=== PATIENT | female | born 1995 | race Two or more races ===

== ENCOUNTER 2020-12-14 15:42 | Emergency (ER) | payer OTHER ==
[~2020-12-14] VITALS: Ht 172.7 cm; Wt 131.7 kg
[2020-12-14] MEDS ORDERED: KETOROLAC 30 MG/1 ML IM ONE (16:30)
[2020-12-14] MEDS ORDERED: KETOROLAC 30 MG/1 ML ONE (16:52)
[2020-12-14 17:22] VITALS: BP 147/81
--- NOTE | 2020-12-14 17:23 | NUR ---
PT READY FOR DC. SPLINT HAS BEEN PLACED. CMS INTACT. [facility] HAS OKAYED SPLINT. PT VERBALIZES DC INSTRUCTIONS. VS STABLE. PT WILL FOLLOW UP WITH DOCTOR WHEN SHE RETURNS HOME TO [place] ON WEDNESDAY. PT DISCHARGED PER [facility].
--- NOTE | 2020-12-14 17:54 | NUR ---
splint done by SYDNEY Phillips tech
== END 2020-12-14 17:56 | disposition home or self-care (01) ==
LOC: ED 17:30
DX: S62.341A Nondisplaced fracture of base of second metacarpal bone, left hand, initial encounter for closed fracture (principal); Z79.899 Other long term (current) drug therapy; V49.49XA Driver injured in collision with other motor vehicles in traffic accident, initial encounter; Y93.89 Activity, other specified; Y92.89 Other specified places as the place of occurrence of the external cause; Y99.8 Other external cause status
CPT/HCPCS: 29125; 73110; 73130; 96372; 99284; J1885